=== PATIENT | female | born 2000 | race Two or more races ===

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

== ENCOUNTER 2023-02-11 12:53 | Emergency (ER) | payer MEDICAID ==
[~2023-02-11] VITALS: Ht 167.6 cm; Wt 54.5 kg
[2023-02-11 17:34] LABS: Basophils # (auto) 0.1 10 ^3/uL (0-0.2); Basophils % (auto) 0.7 % (0.0-2.0); Eosinophils # (auto) 0 10 ^3/uL (0-0.8); Eosinophils % (auto) 0.2 % (0.0-7.0); Hemoglobin 17.4 g/dL (12.2-16.2); Lymphocytes # (auto) 2.3 10 ^3/uL (0.4-5.4); Lymphocytes % (auto) 28.1 % (10.0-50.0); Mean Corpuscular Hemoglobin 31.4 pg (28.0-32.0); Mean Corpuscular Hgb Conc. 34.1 g/dL (32.0-36.0); Mean Corpuscular Volume 92.2 fL (80.0-100.0); Monocytes % (auto) 11.7 % (0.0-12.0); Neutrophils # (auto) 4.9 10 ^3/uL (1.6-8.6); Neutrophils % (auto) 59.3 % (37.0-80.0); Nucleated Red Blood Cells % 0.5 %; Red Blood Cells 5.53 10^6/uL (4.0-5.20); Red Cell Distribution Width 12.4 % (11.8-14.3); White Blood Cell 8.2 10^3/uL (4.4-10.8)
[2023-02-11 17:52] LABS: Albumin 4.8 g/dL (3.4-5.0); Anion Gap 16 (5-15); Blood Urea Nitrogen 15 mg/dL (7-18); Calcium 9.7 mg/dL (8.5-10.1); Carbon Dioxide 15 mmol/L (21-32); Chloride 110 mmol/L (98-107); Glucose 72 mg/dL (74-106); Sodium 141 mmol/L (136-145)
[2023-02-11 17:54] LABS: Salicylate < 1.7 mg/dL (2.8-20.0)
[2023-02-11 17:56] LABS: Alanine Aminotransferase 17 U/L (13-56); Alkaline Phosphatase 58 U/L (45-117); Aspartate Aminotransferase 19 U/L (15-37); BUN/Creatinine Ratio 15.3 (10.0-20.0); Bilirubin, Total 0.8 mg/dL (0.2-1.0); Blood Alcohol < 3.0 mg/dL (0-5); GFR African American 92 mL/min; GFR Non-African American 76 mL/min; Total Protein 9.4 g/dL (6.4-8.2)
[2023-02-11 18:02] LABS: Acetaminophen < 2.0 ug/mL (10-30)
[2023-02-12] MEDS: OLANZapine 5 MG TAB PO SCH (22:20)
[2023-02-13 16:34] LABS: Alcohol, Urine < 3.0 mg/dL (0-10); Amphetamine Screen, Urine NEGATIVE (NEGATIVE); Barbiturate Scree,Urine NEGATIVE (NEGATIVE); Benzodiazephine Screen, Urine NEGATIVE (NEGATIVE); Cannabinoid Screen, Urine NEGATIVE (NEGATIVE); Cocaine Screen, Urine NEGATIVE (NEGATIVE); Opiate Scree,Urine NEGATIVE (NEGATIVE); Phencyclidine Screen, Urine NEGATIVE (NEGATIVE)
[2023-02-13] MEDS: OLANZapine 5 MG TAB PO SCH (21:32)
[2023-02-14] MEDS: OLANZapine 5 MG TAB PO SCH (21:55)
[2023-02-14] MEDS ORDERED: OLANZapine 5 MG TAB ONE (21:55)
[2023-02-15] MEDS ORDERED: OLANZapine 5 MG TAB ONE (21:47)
[2023-02-15] MEDS: OLANZapine 5 MG TAB PO SCH (21:48)
[2023-02-16 07:29] VITALS: BP 96/51
== END 2023-02-16 07:32 | disposition home or self-care (01) ==
LOC: EDBD 12:53 → ER 12:53
DX: U07.1 COVID-19 (principal); R07.89 Other chest pain; F23 Brief psychotic disorder; Z79.899 Other long term (current) drug therapy
CPT/HCPCS: 36415; 80053; 80307; 80320; 80329; 81025; 85025; 87426

== ENCOUNTER 2024-02-28 23:24 | Emergency (ER) | payer MEDICAID ==
[2024-02-28 23:55] LABS: Basophils # (auto) 0.1 10 ^3/uL (0-0.2); Basophils % (auto) 0.8 % (0.0-2.0); Eosinophils # (auto) 0.1 10 ^3/uL (0-0.8); Hematocrit 42.8 % (36.0-46.0); Lymphocytes # (auto) 2.6 10 ^3/uL (0.4-5.4); Lymphocytes % (auto) 35.1 % (10.0-50.0); Mean Corpuscular Hemoglobin 31.9 pg (28.0-32.0); Mean Corpuscular Volume 91.2 fL (80.0-100.0); Monocytes # (auto) 0.8 10 ^3/uL (0-1.3); Monocytes % (auto) 11.2 % (0.0-12.0); Neutrophils # (auto) 3.9 10 ^3/uL (1.6-8.6); Neutrophils % (auto) 51.9 % (37.0-80.0); Nucleated Red Blood Cells % 0.1 %; Red Blood Cells 4.69 10^6/uL (4.0-5.20); Red Cell Distribution Width 12.2 % (11.8-14.3); White Blood Cell 7.5 10^3/uL (4.4-10.8)
[2024-02-29 00:04] LABS: Chloride 108 mmol/L (98-107); Potassium 3.9 mmol/L (3.5-5.1); Sodium 140 mmol/L (136-145)
[2024-02-29 00:05] LABS: Anion Gap 8 (5-15); Carbon Dioxide 24 mmol/L (20-30)
[2024-02-29 00:06] LABS: Calcium 9.7 mg/dL (8.7-10.4)
[2024-02-29 00:10] LABS: INR 1.02 (0.9-1.15); Prothrombin Time 10.8 sec (9.3-11.8)
[2024-02-29 00:11] LABS: BUN/Creatinine Ratio 16.5 (10.0-20.0); Blood Urea Nitrogen 13 mg/dL (9-23); Glucose 100 mg/dL (74-106)
[2024-02-29] MEDS ORDERED: ACET-1304 PO (00:48)
[2024-02-29] MEDS ORDERED: VALA1TAB PO (00:48)
[2024-02-29] MEDS ORDERED: IBUP-1455 PO (00:48)
[2024-02-29 02:44] VITALS: BP 111/70; PULSE 136; RESP 20; TEMP 97.5; O2SAT 97
[2024-02-29] MEDS: KETOROLAC TROMETH 60MG/2ML VIAL IM ONE (02:57)
== END 2024-02-29 03:06 | disposition home or self-care (01) ==
LOC: ER 23:24
DX: N93.9 Abnormal uterine and vaginal bleeding, unspecified (principal); R10.2 Pelvic and perineal pain; A64 Unspecified sexually transmitted disease; F31.9 Bipolar disorder, unspecified
CPT/HCPCS: 36415; 80048; 84702; 85025; 85610; 85730; 86703; 96372; 99283; J1885